=== PATIENT | female | born 1975 | race Caucasian/White ===

== ENCOUNTER 2024-11-13 04:21 | Outpatient (CLI) | payer BC, SELFPAY ==
[2024-11-13] MEDS: Levalbuterol HFA 15 GM INH 4 PUFF IH (12:16)
[2024-11-13] MEDS: Inhaler, Assist Device 1 EACH MC (12:16)
--- NOTE | 2024-11-14 07:45 | W.PFT ---
Date of service: 11/13/24 Time of Service: 10:09 Pulmonary Function Test Result Indications: Dyspnea Impression 1. Good patient effort was noted. ATS standards for reproducibility were met. 2. Spirometry showed mild obstructive lung disease with an FEV1 of 99% (2.52 L) 3. Following the administration of a bronchodilator there was not a significant response 4. Patient declined plethysmography 5. DLCO was normal
== END 2024-11-13 04:22 | disposition home or self-care (01) ==
PROVIDERS: PCP Registered Nurse; Visit Provider Internal Medicine Pulmonary Disease
DX: R06.02 Shortness of breath (principal); J44.9 Chronic obstructive pulmonary disease, unspecified
CPT/HCPCS: 94060; 94729

== ENCOUNTER 2024-11-20 03:31 | Outpatient (CLI) | payer BC, SELFPAY ==
[2024-11-20] MEDS: Methacholine 100 MG VIAL IH (14:38)
[2024-11-20] MEDS: Inhaler, Assist Device 1 EACH MC (14:38)
[2024-11-20] MEDS: Albuterol HFA 18 GM 200 PUFF INH IH (14:39)
--- NOTE | 2024-11-21 14:55 | W.PFT ---
Date of service: 11/20/24 Time of Service: 13:02 Pulmonary Function Test Result Indications: Dyspnea on exertion Impression 1. Good patient effort was noted. ATS standards for reproducibility were met. 2. Spirometry showed mild obstructive lung disease with an FEV1 of 89% (2.27 L) 3. At 2 mg/mL of methacholine there was a 34% fall in FEV1 Conclusion: Mild obstructive lung disease. Positive methacholine challenge test
== END 2024-11-20 03:32 | disposition home or self-care (01) ==
LOC: RT 03:31
PROVIDERS: PCP Registered Nurse; Visit Provider Registered Nurse
DX: J45.909 Unspecified asthma, uncomplicated (principal); R06.02 Shortness of breath
CPT/HCPCS: 94070; 95070; J7674